=== PATIENT | male | born 1995 | race Caucasian/White ===

== ENCOUNTER 2017-08-12 00:11 | Emergency (ER) | payer OTHER ==
[~2017-08-12] VITALS: Ht 170.2 cm; Wt 86.2 kg
[2017-08-12 00:58] VITALS: BP 130/80
== END 2017-08-12 00:58 | disposition home or self-care (01) ==
LOC: ED 00:11
DX: H66.91 Otitis media, unspecified, right ear (principal)
CPT/HCPCS: Q0162